=== PATIENT | female | born 2000 | race Two or more races ===

== ENCOUNTER 2022-04-15 09:35 | Inpatient (IN) | payer BC, MEDICAID ==
[~2022-04-15] VITALS: Ht 157.5 cm; Wt 86.2 kg
[2022-04-15] MEDS ORDERED: OXYTOCIN 10UNIT/ML 1ML VIAL IM ONE (09:50)
[2022-04-15] MEDS ORDERED: DERMOPLAST 60ML BOTTLE TOP PRN (10:45)
[2022-04-15] MEDS ORDERED: WITCH HAZEL-GLYCERIN PAD TOP PRN (10:45)
[2022-04-15] MEDS ORDERED: LACTATED RINGER'S 1,000 ML IV SCH (10:45)
[2022-04-15] MEDS ORDERED: PHISODERM TOP SOLN 240ML BTL TOP PRN (10:45)
[2022-04-15 11:22] LABS: Red Blood Cells 4.47 10^6/uL (4.0-5.20)
[2022-04-15 11:23] VITALS: BP 136/84
[2022-04-15] MEDS ORDERED: ONDANSETRON ODT 4 MG TAB PO PRN (11:30)
[2022-04-15] MEDS ORDERED: METHYLERGONOVINE MALEATE 0.2 MG/ML AMP IM ONE (11:30)
[2022-04-15] MEDS ORDERED: PREN-96 PO (11:31)
[2022-04-15 11:32] LABS: Hematocrit 31.8 % (36.0-46.0); Hemoglobin 9.8 g/dL (12.2-16.2); Mean Corpuscular Volume 71.1 fL (80.0-100.0); Red Cell Distribution Width 16.3 % (11.8-14.3); White Blood Cell 13.7 10^3/uL (4.4-10.8)
[2022-04-15 11:37] LABS: Basophils % (manual) 0 (0.0-2.0); Blast Cells 0; Eosinophils % (manual) 0 (0-7); Monocytes % (manual) 0 (0-12); Myelocytes % 0; Promyelocytes % 0
[2022-04-15] MEDS: IBUPROFEN 800 MG TAB PO SCH ×3 (11:53→23:45)
[2022-04-15 11:57] LABS: Albumin 2.4 g/dL (3.4-5.0); Anion Gap 11 (5-15); BUN/Creatinine Ratio 11.1; Blood Urea Nitrogen 5 mg/dL (7-18); Calcium 9.1 mg/dL (8.5-10.1); Carbon Dioxide 21 mmol/L (21-32); Chloride 104 mmol/L (98-107); GFR African American 224 mL/min; GFR Non-African American 185 mL/min; Glucose 84 mg/dL (74-106); Potassium 3.9 mmol/L (3.5-5.1); Sodium 136 mmol/L (136-145)
[2022-04-15 12:06] LABS: Alanine Aminotransferase 27 U/L (13-56); Alkaline Phosphatase 225 U/L (45-117); Aspartate Aminotransferase 26 U/L (15-37); Bilirubin, Total 0.4 mg/dL (0.2-1.0); Total Protein 7.2 g/dL (6.4-8.2)
[2022-04-15 14:49] LABS: INR 0.87 (0.9-1.15); Partial Thromboplastin Time 30.6 sec (24.6-33.4)
[2022-04-15 14:53] VITALS: BP 123/69
[2022-04-15 14:56] LABS: Band Neutrophils % (manual) 2; Lymphocytes % (manual) 3 (10.0-50.0); Metamyelocytes % 1; Reactive Lymphocytes 1
[2022-04-15] MEDS: ACETAMINOPHEN 325 MG TAB PO PRN ×2 (15:07→19:43)
[2022-04-15 17:20] LABS: Urine Bacteria FEW /hpf (None Seen); Urine Blood 3+ /uL (Negative); Urine Specific Gravity 1.003 (1.001-1.035); Urine WBC 11 /hpf (0 - 5)
[2022-04-15] MEDS: guaiFENesin-DM 100/10mg/5ml SYR PO PRN (17:30)
[2022-04-15 17:35] LABS: Alcohol, Urine < 3.0 mg/dL (0-10); Amphetamine Screen, Urine NEGATIVE (NEGATIVE); Barbiturate Scree,Urine NEGATIVE (NEGATIVE); Benzodiazephine Screen, Urine NEGATIVE (NEGATIVE); Cannabinoid Screen, Urine NEGATIVE (NEGATIVE); Cocaine Screen, Urine NEGATIVE (NEGATIVE); Opiate Scree,Urine NEGATIVE (NEGATIVE); Phencyclidine Screen, Urine NEGATIVE (NEGATIVE)
[2022-04-15 17:44] VITALS: BP 131/83
[2022-04-15 19:00] VITALS: BP 134/86
[2022-04-15] MEDS ORDERED: DOCUSATE SOD 100 MG CAP PO SCH (22:00)
[2022-04-15 23:00] VITALS: BP 124/81
[2022-04-16 03:00] VITALS: BP 126/79
[2022-04-16] MEDS: IBUPROFEN 800 MG TAB PO SCH (06:00)
[2022-04-16 07:05] VITALS: BP 133/85
[2022-04-16 07:06] LABS: Rubella Antibodies, IgG <0.90 index (Immune >0.99)
[2022-04-16] MEDS: guaiFENesin-DM 100/10mg/5ml SYR PO PRN (07:40)
[2022-04-16] MEDS ORDERED: IBUP800T26 PO (07:59)
[2022-04-16] MEDS ORDERED: DOCU100C10 PO (07:59)
[2022-04-16] MEDS ORDERED: FER325T PO (07:59)
[2022-04-16] MEDS ORDERED: FERROUS SULFATE 325mg EC TAB PO ONE (08:00)
[2022-04-16 08:06] LABS: RPR Non Reactive (Non Reactive)
[2022-04-16 11:00] VITALS: BP 118/64
[2022-04-16 14:30] VITALS: BP 109/66
== END 2022-04-16 16:15 | disposition home or self-care (01) | DRG 807 ==
LOC: LDRP 09:35
PROVIDERS: ADMIT Obstetrics & Gynecology Obstetrics; ATTEND Obstetrics & Gynecology Obstetrics
PROC: 10E0XZZ Delivery of Products of Conception, External Approach (ICD-10-PCS; principal; 2022-04-15)
DX: O69.81X0 Labor and delivery complicated by cord around neck, without compression, not applicable or unspecified (principal); Z37.0 Single live birth; D64.9 Anemia, unspecified; Z20.822 Contact with and (suspected) exposure to COVID-19; Z3A.40 40 weeks gestation of pregnancy; O90.81 Anemia of the puerperium
CPT/HCPCS: 36415; 59409; 80053; 80307; 81001; 85007; 85027; 85610; 85730; 86592; 86703; 86762; 86850; 86900; 86901; 87340; 87426; 87804; 94760; 96360; 96361; 96372; G0378